=== PATIENT | female | born 1960 | race African-American/Black ===

== ENCOUNTER 2021-04-01 04:22 | Emergency (ER) | payer OTHER ==
[2021-04-01 04:42] VITALS: BMI 24.5
[2021-04-01 06:11] LABS: BASO % 1.3 % (0-2.0); HEMATOCRIT 41.6 % (32.4-45.2); HEMOGLOBIN 14.3 GM/dL (10.7-15.3); LYMPH % 36.1 % (8-40); MCH 30.6 pg (25.7-33.7); MCHC 34.5 g/dl (32.0-36.0); MEAN CELL VOLUME 88.8 fl (80-96); MEAN PLT VOLUME 8.7 fl (7.5-11.1); MONO % 8.5 % (3.8-10.2); NEUT % 46.1 % (42.8-82.8); PLATELET COUNT 257 K/MM3 (134-434); RBC 4.68 M/mm3 (3.60-5.2); RDW 12.8 % (11.6-15.6); WHITE BLOOD COUNT 5.5 K/mm3 (4.0-10.0)
[2021-04-01 06:48] LABS: PH,URINE 6.5 (5.0-8.0); URINE APPEARANCE CLEAR; URINE BILIRUBIN NEGATIVE (NEGATIVE); URINE COLOR YELLOW; URINE GLUCOSE (UA) NEGATIVE (NEGATIVE); URINE KETONE NEGATIVE (NEGATIVE); URINE LEUK ESTERASE NEGATIVE (NEGATIVE); URINE NITRITE NEGATIVE (NEGATIVE); URINE PROTEIN NEGATIVE (NEGATIVE); URINE UROBILINOGEN 0.2 mg/dL (0.2-1.0)
[2021-04-01 07:33] LABS: BLOOD UREA NITROGEN 14.8 mg/dL (7-18)
[2021-04-01 07:37] LABS: CREATININE 0.9 mg/dL (0.55-1.3)
[2021-04-01 07:38] LABS: BILIRUBIN,TOTAL 0.5 mg/dL (0.2-1); TOT PROT 7.7 g/dl (6.4-8.2)
[2021-04-01 08:45] LABS: N-TERMINAL BNP 61.5 pg/ml (5-125)
[2021-04-01 09:58] LABS: EPI CELLS 0 /uL (0-25.1); URINE RBC 5 /uL (0-23.9); URINE WBC 2 /uL (0-25.8)
[2021-04-01 09:59] LABS: HYALINE CASTS 0 /uL (0-3.1); URINE BACTERIA 11 /uL (0-1359)
[2021-04-01 10:43] VITALS: TEMP 97.1
[2021-04-01 12:03] VITALS: BP 123/77; PULSE 51
== END 2021-04-01 12:03 | disposition home or self-care (01) ==
LOC: JER 04:22
DX: R07.9 Chest pain, unspecified (principal)
CPT/HCPCS: 36415; 71275-TC; 80053; 80061; 81003; 82550; 82553; 83721; 83880; 84484; 85025; 85379; 93005; 93010; 99285-25; C9803; Q9967; U0003; U0005

== ENCOUNTER 2021-05-29 18:52 | Emergency (ER) | payer OTHER ==
[2021-05-29 18:57] VITALS: PULSE 69; TEMP 97.7; BMI 23.8
[2021-05-29 18:58] VITALS: BP 173/74
== END 2021-05-30 00:20 | disposition home or self-care (01) ==
LOC: JERFT 18:52
DX: M25.571 Pain in right ankle and joints of right foot (principal); S92.524A Nondisplaced fracture of middle phalanx of right lesser toe(s), initial encounter for closed fracture
CPT/HCPCS: 73610-TC-RT-FY; 73630-TC-RT-FY; 93971-TC; 99284-25